=== PATIENT | female | born 1995 | race Caucasian/White ===

== ENCOUNTER 2024-04-15 02:47 | Inpatient (IN) | payer SELFPAY ==
[2024-04-15] MEDS: Sodium Chloride 0.9% 1,000 ML IV ONE ×2 (03:43→10:22)
[2024-04-15] MEDS: Ondansetron 4 MG/2 ML SDV IVPUSH ONE (03:43)
[2024-04-15] MEDS: Morphine 4 MG/ML Syringe IVPUSH ONE ×2 (03:44→05:59)
[2024-04-15 03:45] LABS: BASOPHILS ABSOLUTE AUTO 0.04 K/uL (0.00-0.20); BASOPHILS PERCENT AUTO 0.2 % (0.0-1.0); EOSINOPHILS ABSOLUTE AUTO 0.05 K/uL (0.00-0.45); EOSINOPHILS PERCENT AUTO 0.3 % (0.0-6.0); HEMATOCRIT 45.5 % (37.0-47.0); HEMOGLOBIN 16.4 g/dL (12.0-16.0); IMMATURE GRAN ABSOLUTE AUTO 0.06 K/uL (0.00-0.05); IMMATURE GRAN PERCENT AUTO 0.4 % (0.0-0.4); LYMPHOCYTES ABSOLUTE AUTO 0.84 K/uL (1.00-4.80); LYMPHOCYTES PERCENT AUTO 5.2 % (24.0-44.0); MEAN CORPUSCULAR HEMOGLOBIN 31.6 pg (28.0-32.0); MEAN CORPUSCULAR VOLUME 87.7 fL (83.0-99.0); MEAN PLATELET VOLUME 10.1 fL (9.4-12.3); MONOCYTES ABSOLUTE AUTO 0.35 K/uL (0.00-0.80); MONOCYTES PERCENT AUTO 2.2 % (0.0-8.0); NEUTROPHILS ABSOLUTE AUTO 14.68 K/uL (1.80-7.70); NEUTROPHILS PERCENT AUTO 91.7 % (41.0-71.0); PLATELET COUNT,PLT 234 K/uL (150-400); RED BLOOD CELL COUNT 5.19 M/uL (4.10-5.30); WHITE BLOOD CELL COUNT,WBC 16.02 K/uL (3.9-11.3)
[2024-04-15] MEDS: Iopamidol 755 MG/ML 500 ML Multipack Bottle IVPUSH ONE (03:59)
[2024-04-15 04:08] LABS: A/G RATIO 1.2 (0.9-1.6); ALBUMIN 4.6 g/dL (3.4-5.0); CALCIUM 9.9 mg/dL (8.5-10.1); CARBON DIOXIDE,CO2 23.5 mmol/L (21.0-32.0); CREATININE 0.9 mg/dL (0.6-1.0); EST CRCL DRUG DOSING (CG) 72.95 mL/min; POTASSIUM,K 5.2 mmol/L (3.5-5.1); PROTEIN TOTAL,TP 8.4 g/dL (6.4-8.2)
[2024-04-15] MEDS ORDERED: Ketorolac 30 MG/ML SDV IVPUSH PRN (09:00)
[2024-04-15] MEDS ORDERED: Ondansetron 4 MG/2 ML SDV IVPUSH PRN (09:00)
[2024-04-15] MEDS ORDERED: Morphine 2 MG/ML SYRINGE IVPUSH PRN (09:00)
[2024-04-15] MEDS ORDERED: Polyethylene Glycol 3350 Powder 17 GM Packet PO PRN (09:00)
[2024-04-15] MEDS: Lactated Ringers 1,000 ML IV ONE (09:31)
[2024-04-15] MEDS: Sodium Chloride 0.9% 1,000 ML IV SCH (10:28)
[2024-04-15] MEDS: Piperacillin/Tazobactam 4.5 GM in Sodium Chloride 0.9% 100 ML IV ONE (11:41)
[2024-04-15] MEDS: Acetaminophen 325 MG Tab PO PRN (11:51)
[2024-04-15] MEDS: Pantoprazole 40 MG in Sodium Chloride 0.9% 10 ML IVPUSH SCH (13:00)
[2024-04-15 14:10] LABS: BASOPHILS ABSOLUTE AUTO 0.03 K/uL (0.00-0.20); BASOPHILS PERCENT AUTO 0.2 % (0.0-1.0); EOSINOPHILS ABSOLUTE AUTO 0.14 K/uL (0.00-0.45); HEMATOCRIT 36.4 % (37.0-47.0); HEMOGLOBIN 13.1 g/dL (12.0-16.0); IMMATURE GRAN ABSOLUTE AUTO 0.04 K/uL (0.00-0.05); IMMATURE GRAN PERCENT AUTO 0.3 % (0.0-0.4); LYMPHOCYTES ABSOLUTE AUTO 2.25 K/uL (1.00-4.80); MEAN CORPUSCULAR HEMOGLOBIN 31.9 pg (28.0-32.0); MEAN CORPUSCULAR VOLUME 88.6 fL (83.0-99.0); MEAN PLATELET VOLUME 9.5 fL (9.4-12.3); MONOCYTES ABSOLUTE AUTO 0.78 K/uL (0.00-0.80); MONOCYTES PERCENT AUTO 5.6 % (0.0-8.0); NEUTROPHILS ABSOLUTE AUTO 10.78 K/uL (1.80-7.70); NEUTROPHILS PERCENT AUTO 76.9 % (41.0-71.0); PLATELET COUNT,PLT 188 K/uL (150-400); RED BLOOD CELL COUNT 4.11 M/uL (4.10-5.30); WHITE BLOOD CELL COUNT,WBC 14.02 K/uL (3.9-11.3)
[2024-04-15 14:35] LABS: A/G RATIO 1.2 (0.9-1.6); ALBUMIN 3.2 g/dL (3.4-5.0); BILIRUBIN TOTAL 0.9 mg/dL (0.2-1.0); CALCIUM 8.1 mg/dL (8.5-10.1); CARBON DIOXIDE,CO2 23.6 mmol/L (21.0-32.0); CREATININE 0.8 mg/dL (0.6-1.0); EST CRCL DRUG DOSING (CG) 82.06 mL/min; POTASSIUM,K 3.4 mmol/L (3.5-5.1); PROTEIN TOTAL,TP 5.8 g/dL (6.4-8.2)
[2024-04-15] MEDS: Potassium Chloride 20 MEQ Tab.ER PO ONE (16:10)
[2024-04-15] MEDS: Piperacillin/Tazobactam 4.5 GM in Sodium Chloride 0.9% 100 ML IV SCH (19:11)
[2024-04-16 06:04] LABS: BASOPHILS ABSOLUTE AUTO 0.02 K/uL (0.00-0.20); BASOPHILS PERCENT AUTO 0.2 % (0.0-1.0); EOSINOPHILS ABSOLUTE AUTO 0.13 K/uL (0.00-0.45); EOSINOPHILS PERCENT AUTO 1.3 % (0.0-6.0); HEMATOCRIT 36.6 % (37.0-47.0); HEMOGLOBIN 12.5 g/dL (12.0-16.0); IMMATURE GRAN ABSOLUTE AUTO 0.04 K/uL (0.00-0.05); IMMATURE GRAN PERCENT AUTO 0.4 % (0.0-0.4); LYMPHOCYTES ABSOLUTE AUTO 1.57 K/uL (1.00-4.80); LYMPHOCYTES PERCENT AUTO 16.1 % (24.0-44.0); MEAN CORPUSCULAR HGB CONC 34.2 g/dL (32.0-36.0); MEAN CORPUSCULAR VOLUME 90.8 fL (83.0-99.0); MEAN PLATELET VOLUME 9.7 fL (9.4-12.3); MONOCYTES ABSOLUTE AUTO 0.42 K/uL (0.00-0.80); MONOCYTES PERCENT AUTO 4.3 % (0.0-8.0); NEUTROPHILS ABSOLUTE AUTO 7.55 K/uL (1.80-7.70); NEUTROPHILS PERCENT AUTO 77.7 % (41.0-71.0); PLATELET COUNT,PLT 154 K/uL (150-400); RED BLOOD CELL COUNT 4.03 M/uL (4.10-5.30); WHITE BLOOD CELL COUNT,WBC 9.73 K/uL (3.9-11.3)
[2024-04-16 06:27] LABS: A/G RATIO 1.1 (0.9-1.6); ALBUMIN 2.9 g/dL (3.4-5.0); BILIRUBIN TOTAL 0.9 mg/dL (0.2-1.0); CALCIUM 8.1 mg/dL (8.5-10.1); CARBON DIOXIDE,CO2 21.9 mmol/L (21.0-32.0); CREATININE 0.7 mg/dL (0.6-1.0); EST CRCL DRUG DOSING (CG) 93.79 mL/min; MAGNESIUM 1.8 mg/dL (1.8-2.4); POTASSIUM,K 3.9 mmol/L (3.5-5.1); PROTEIN TOTAL,TP 5.6 g/dL (6.4-8.2)
[2024-04-16] MEDS: Gadobenate Dimeglumine 529 MG/ML 20 ML SDV IVPUSH ONE (09:19)
[2024-04-16] MEDS: Dextrose 5%-0.45% NaCl 1,000 ML IV SCH (14:17)
[2024-04-16 15:17] LABS: BASOPHILS ABSOLUTE AUTO 0.03 K/uL (0.00-0.20); BASOPHILS PERCENT AUTO 0.3 % (0.0-1.0); EOSINOPHILS ABSOLUTE AUTO 0.15 K/uL (0.00-0.45); EOSINOPHILS PERCENT AUTO 1.3 % (0.0-6.0); HEMATOCRIT 37.5 % (37.0-47.0); HEMOGLOBIN 13.2 g/dL (12.0-16.0); IMMATURE GRAN ABSOLUTE AUTO 0.05 K/uL (0.00-0.05); IMMATURE GRAN PERCENT AUTO 0.4 % (0.0-0.4); LYMPHOCYTES ABSOLUTE AUTO 1.37 K/uL (1.00-4.80); MEAN CORPUSCULAR HEMOGLOBIN 31.4 pg (28.0-32.0); MEAN CORPUSCULAR HGB CONC 35.2 g/dL (32.0-36.0); MEAN CORPUSCULAR VOLUME 89.1 fL (83.0-99.0); MEAN PLATELET VOLUME 9.8 fL (9.4-12.3); MONOCYTES ABSOLUTE AUTO 0.47 K/uL (0.00-0.80); MONOCYTES PERCENT AUTO 4.1 % (0.0-8.0); NEUTROPHILS ABSOLUTE AUTO 9.31 K/uL (1.80-7.70); NEUTROPHILS PERCENT AUTO 81.9 % (41.0-71.0); PLATELET COUNT,PLT 169 K/uL (150-400); RED BLOOD CELL COUNT 4.21 M/uL (4.10-5.30); WHITE BLOOD CELL COUNT,WBC 11.38 K/uL (3.9-11.3)
[2024-04-16 15:41] LABS: A/G RATIO 1.1 (0.9-1.6); ALBUMIN 3.3 g/dL (3.4-5.0); BILIRUBIN TOTAL 0.9 mg/dL (0.2-1.0); CALCIUM 8.5 mg/dL (8.5-10.1); CARBON DIOXIDE,CO2 21.3 mmol/L (21.0-32.0); CREATININE 0.8 mg/dL (0.6-1.0); EST CRCL DRUG DOSING (CG) 82.06 mL/min; POTASSIUM,K 3.6 mmol/L (3.5-5.1); PROTEIN TOTAL,TP 6.3 g/dL (6.4-8.2)
[2024-04-16] MEDS: Sodium Chloride 0.9% 1,000 ML IV SCH (17:23)
[2024-04-17 05:41] LABS: BASOPHILS ABSOLUTE AUTO 0.03 K/uL (0.00-0.20); BASOPHILS PERCENT AUTO 0.4 % (0.0-1.0); EOSINOPHILS ABSOLUTE AUTO 0.31 K/uL (0.00-0.45); EOSINOPHILS PERCENT AUTO 3.6 % (0.0-6.0); HEMATOCRIT 34.4 % (37.0-47.0); HEMOGLOBIN 12.3 g/dL (12.0-16.0); IMMATURE GRAN ABSOLUTE AUTO 0.03 K/uL (0.00-0.05); IMMATURE GRAN PERCENT AUTO 0.4 % (0.0-0.4); LYMPHOCYTES ABSOLUTE AUTO 1.94 K/uL (1.00-4.80); LYMPHOCYTES PERCENT AUTO 22.7 % (24.0-44.0); MEAN CORPUSCULAR HEMOGLOBIN 31.7 pg (28.0-32.0); MEAN CORPUSCULAR HGB CONC 35.8 g/dL (32.0-36.0); MEAN CORPUSCULAR VOLUME 88.7 fL (83.0-99.0); MEAN PLATELET VOLUME 9.9 fL (9.4-12.3); MONOCYTES ABSOLUTE AUTO 0.58 K/uL (0.00-0.80); MONOCYTES PERCENT AUTO 6.8 % (0.0-8.0); NEUTROPHILS ABSOLUTE AUTO 5.67 K/uL (1.80-7.70); NEUTROPHILS PERCENT AUTO 66.1 % (41.0-71.0); PLATELET COUNT,PLT 162 K/uL (150-400); RED BLOOD CELL COUNT 3.88 M/uL (4.10-5.30); WHITE BLOOD CELL COUNT,WBC 8.56 K/uL (3.9-11.3)
[2024-04-17 06:11] LABS: ALBUMIN 2.9 g/dL (3.4-5.0); BILIRUBIN TOTAL 0.9 mg/dL (0.2-1.0); CALCIUM 8.3 mg/dL (8.5-10.1); CARBON DIOXIDE,CO2 21.5 mmol/L (21.0-32.0); CREATININE 0.8 mg/dL (0.6-1.0); EST CRCL DRUG DOSING (CG) 82.06 mL/min; POTASSIUM,K 3.5 mmol/L (3.5-5.1); PROTEIN TOTAL,TP 5.7 g/dL (6.4-8.2)
== END 2024-04-17 12:02 | disposition home or self-care (01) | DRG 439 ==
LOC: MW.ED 02:47 → MW.MS 07:09
PROVIDERS: ADMIT Family Medicine; ATTEND Family Medicine
DX: K85.10 Biliary acute pancreatitis without necrosis or infection (principal); K80.12 Calculus of gallbladder with acute and chronic cholecystitis without obstruction; F17.290 Nicotine dependence, other tobacco product, uncomplicated; R79.89 Other specified abnormal findings of blood chemistry; D72.829 Elevated white blood cell count, unspecified; F15.90 Other stimulant use, unspecified, uncomplicated; Z79.899 Other long term (current) drug therapy
CPT/HCPCS: 36415; 74177; 74177-26; 74183; 74183-26; 76705; 76705-26; 80053; 80061; 82947; 83690; 83735; 84703; 85025; 87040; 96361; 96374; 96375; 96376; 99222; 99232; 99239; 99284; 99285-25; A9270-GY; A9577; J2270; J2405; J2470; J2543; J3490; J7030; J7120; J7799; Q9967

== ENCOUNTER 2024-05-04 08:03 | Day surgery (SDC) | payer MEDICAID ==
[~2024-05-04 08:03] MED LIST: Albuterol 0.083% 2.5 MG/3 ML Neb Soln NEB PRN; Bupivacaine 0.5% 30 ML SDV ONE; Metoclopramide 10 MG/2 ML SDV IVPUSH PRN; Morphine 2 MG/ML SYRINGE IVPUSH PRN; Naloxone 0.4 MG/ML SDV IVPUSH PRN; Ondansetron 4 MG/2 ML SDV IVPUSH PRN; Phenylephrine HCl In 0.9% NaCl 1 MG/10 ML Syringe IVPUSH PRN; ceFAZolin 2 GM in Sodium Chloride 0.9% 50 ML IV ONE; fentaNYL 250 MCG/5 ML SDV ONE; fentaNYL 50 MCG/ML SDV IVPUSH PRN
[2024-05-04] MEDS: Lactated Ringers 1,000 ML IV SCH (08:15)
[2024-05-04] MEDS: Scopalamine 1mg/3day Transdermal Patch TOP ONE (08:15)
[2024-05-04] MEDS ORDERED: Ketorolac 30 MG/ML SDV ONE (08:17)
[2024-05-04] MEDS ORDERED: Ondansetron 4 MG/2 ML SDV ONE (08:17)
[2024-05-04] MEDS ORDERED: Lidocaine 2% 5 ML SDV ONE (08:17)
[2024-05-04] MEDS ORDERED: Propofol 200 MG/20 ML SDV ONE (08:17)
[2024-05-04] MEDS ORDERED: Rocuronium Bromide 50 MG/5 ML Syringe ONE ×2 (08:18→09:47)
[2024-05-04] MEDS ORDERED: Midazolam 1 MG/ML 2 ML SDV ONE (08:18)
[2024-05-04] MEDS ORDERED: dexmedeTOMIDine HCl 200 MCG/2 ML SDV ONE (08:19)
[2024-05-04] MEDS ORDERED: Ropivacaine 0.5% 5 MG/ML 30 ML SDV ONE (08:20)
[2024-05-04] MEDS ORDERED: Sodium Chloride 0.9% 20 ML ONE (08:20)
[2024-05-04] MEDS ORDERED: ceFAZolin 1 GM Vial ONE (08:45)
[2024-05-04] MEDS: Scopalamine 1mg/3day Transdermal Patch ONE (08:47)
[2024-05-04] MEDS ORDERED: Dexamethasone 4 MG/ML 5 ML MDV ONE (08:55)
[2024-05-04] MEDS ORDERED: Sugammadex Sodium 200 MG/2 ML VIAL IV ONE (09:52)
[2024-05-04] MEDS ORDERED: Bupivacaine 0.5% 30 ML SDV ONE (10:21)
[2024-05-04] MEDS ORDERED: Acetaminophen/HYDROcodone 325-5 MG Tab PO PRN (11:10)
[2024-05-04] MEDS ORDERED: Morphine 4 MG/ML Syringe IVPUSH PRN (11:10)
[2024-05-04] MEDS ORDERED: Lactated Ringers 1,000 ML IV SCH (11:15)
[2024-05-04] MEDS: HYDROmorphone 1 MG/ML Syringe IVPUSH PRN (11:23)
== END 2024-05-04 13:23 | disposition home or self-care (01) ==
LOC: MW.SDS 08:03
PROVIDERS: ATTEND Surgery
DX: K80.10 Calculus of gallbladder with chronic cholecystitis without obstruction (principal); K85.90 Acute pancreatitis without necrosis or infection, unspecified; F17.290 Nicotine dependence, other tobacco product, uncomplicated
CPT/HCPCS: 47562; 81025; A9270; J0131; J0665; J0690; J1100; J1171; J1885; J2250; J2405; J2704; J2795; J3010; J7120; 00790; 64486; J3490